=== PATIENT | female | born 1995 | race Caucasian/White ===

== ENCOUNTER 2022-12-05 17:27 | Emergency (ER) | payer OTHER ==
[2022-12-05] MEDS ORDERED: Lidocaine 1% 20 ML MDV INFILT ONE (17:28)
[2022-12-05 18:26] VITALS: BP 132/77; PULSE 117
[2022-12-05] MEDS ORDERED: Diphtheria/Tetanus Toxoids,Adult (Td) 0.5 ML SDV IM ONE (18:36)
== END 2022-12-05 19:00 | disposition home or self-care (01) ==
LOC: FB.ED 17:27
DX: S11.91XA Laceration without foreign body of unspecified part of neck, initial encounter (principal); Z23 Encounter for immunization; V27.99XA Unspecified rider of other motorcycle injured in collision with fixed or stationary object in traffic accident, initial encounter; Y93.55 Activity, bike riding
CPT/HCPCS: 12002; 90471; 90714; 99282-25; 99283

== ENCOUNTER 2023-08-03 23:14 | Emergency (ER) | payer OTHER ==
[2023-08-04 00:12] LABS: BASOPHILS ABSOLUTE AUTO 0.1 x10-3/uL (0.0-0.1); BASOPHILS PERCENT AUTO 0.7 % (0.2-1.5); EOSINOPHILS ABSOLUTE AUTO 0.1 x10-3/uL (0.0-0.8); EOSINOPHILS PERCENT AUTO 1.4 % (0.6-8.1); HEMATOCRIT 39.3 % (34.2-48.2); LYMPHOCYTES ABSOLUTE AUTO 1.5 x10-3/uL (1.0-4.4); LYMPHOCYTES PERCENT AUTO 18.9 % (18.4-52.1); MEAN CORPUSCULAR HEMOGLOBIN 30.5 pg (23.9-33.9); MEAN CORPUSCULAR HGB CONC 33.1 g/dL (31.9-34.8); MEAN CORPUSCULAR VOLUME 91.9 fL (76.7-100.5); MEAN PLATELET VOLUME 7.8 fL (7.1-12.4); MONOCYTES ABSOLUTE AUTO 0.7 x10-3/uL (0.3-1.0); MONOCYTES PERCENT AUTO 8.2 % (4.4-15.7); NEUTROPHILS ABSOLUTE AUTO 5.7 x10-3/uL (1.5-6.3); NEUTROPHILS PERCENT AUTO 70.8 % (30.8-76.2); PLATELET COUNT,PLT 262 x10(3)uL (151-488); RED BLOOD CELL COUNT 4.28 x10(6)uL (3.60-5.20); RED CELL DISTRIBUTION WIDTH 12.4 % (12.3-16.5)
[2023-08-04 00:17] LABS: BLOOD UREA NITROGEN,BUN 14 mg/dL (7-18); CALCIUM 8.9 mg/dL (8.6-10.2); CARBON DIOXIDE,CO2 25 mmol/L (21-32); CHLORIDE,CL 103 mmol/L (100-110); CREATININE 0.7 mg/dL (0.55-1.02); ESTIMATED GFR 122 mL/min (>60); GLUCOSE RANDOM 101 mg/dL (80-116); POTASSIUM,K 4.1 mmol/L (3.5-5.3); SODIUM,NA 138 mmol/L (135-145)
[2023-08-04 00:23] LABS: ALANINE AMINOTRANSFERASE,ALT 24 U/L (12-36); ALBUMIN 3.8 g/dL (3.5-5.2); ALKALINE PHOSPHATASE 80 IU/L (56-112); ASPARTATE AMNIOTRANSFERASE,AST 13 IU/L (5-25); BILIRUBIN TOTAL 0.3 mg/dL (0.1-1.3); PROTEIN TOTAL,TP 7.8 g/dL (6.0-8.0)
[2023-08-04 00:34] LABS: BILIRUBIN,URINE NEGATIVE (NEGATIVE); GLUCOSE,URINE NORMAL (NORMAL); KETONES,URINE NEGATIVE (NEGATIVE); LEUKOCYTE ESTERASE,URINE NEGATIVE (NEGATIVE); NITRITE,URINE NEGATIVE (NEGATIVE); OCCULT BLOOD,URINE NEGATIVE (NEGATIVE); PROTEIN,URINE NEGATIVE (NEGATIVE); UROBILINOGEN,URINE NORMAL (NEGATIVE)
[2023-08-04 00:41] LABS: APPEARANCE,URINE CLEAR (CLEAR); BACTERIA,URINE FEW (NS); COLOR,URINE YELLOW (YELLOW); RBC,URINE 0-5 (0-5); SQUAMOUS EPITHELIAL CELLS,UR FEW (NS,R,O); WBC,URINE 0-5 (0-5)
[2023-08-04 00:49] LABS: C-REACTIVE PROTEIN < 0.50 mg/dL (<0.50); HCG QUANTITATIVE 14479 mIU/mL (<5)
[2023-08-04 02:16] VITALS: BP 119/81; PULSE 100
== END 2023-08-04 02:13 | disposition home or self-care (01) ==
LOC: FB.ED 23:14
DX: O20.0 Threatened abortion (principal); Z3A.08 8 weeks gestation of pregnancy; Z79.899 Other long term (current) drug therapy
CPT/HCPCS: 36415; 80053; 81001; 84702; 85025; 86140; 87491; 87591; 99284

== ENCOUNTER 2024-03-19 16:20 | Emergency (ER) | payer OTHER ==
[2024-03-19 17:12] VITALS: BP 130/84; PULSE 99
== END 2024-03-19 17:16 | disposition home or self-care (01) ==
LOC: FB.ED 16:20
DX: J20.9 Acute bronchitis, unspecified (principal); Z34.91 Encounter for supervision of normal pregnancy, unspecified, first trimester
CPT/HCPCS: 99283